=== PATIENT | female | born 1995 | race Caucasian/White ===

== ENCOUNTER 2017-09-17 19:16 | Outpatient (CLI) | payer SELFPAY ==
[2017-09-17 19:54] LABS: APPEARANCE,URINE CLEAR; BILIRUBIN,URINE NEGATIVE (NEGATIVE); COLOR,URINE STRAW; GLUCOSE, URINE NEGATIVE (NEGATIVE); KETONES,URINE NEGATIVE (NEGATIVE); LEUKOCYTE ESTERASE,URINE NEGATIVE (NEGATIVE); NITRITE,URINE NEGATIVE (NEGATIVE); PROTEIN,URINE NEGATIVE (NEGATIVE); URINE SPECIFIC GRAVITY 1.004; UROBILINOGEN,URINE NEGATIVE mg/dL (<2.0)
[2017-09-17] MEDS ORDERED: RINGERS SOLUTION,LACTATED 1,000 ML IV PRN (20:00)
[2017-09-17 20:22] LABS: URINE AMPHETAMINES SCREEN NEGATIVE; URINE BARBITURATES SCREEN NEGATIVE; URINE BENZODIAZEPINES SCREEN NEGATIVE; URINE COCAINE SCREEN NEGATIVE; URINE METHADONE SCREEN NEGATIVE; URINE PHENCYCLIDINE SCREEN NEGATIVE
[2017-09-17 20:30] LABS: URINE MARIJUANA (THC) SCREEN UNCONFIRMED POSITIVE
--- NOTE | 2017-09-17 22:12 | RADIOLOGY REPORT (SQ) ---
EXAM DESCRIPTION: U/S OB 14+ TRNABD 1GES W/O DOP COMPLETED DATE/TIME: 09/17/2017 9:53 pm REASON FOR STUDY: full ob and cervical lenght pre term labor limited COMPARISON: None. TECHNIQUE: Static and Dynamic grayscale imaging performed of gravid uterus using transabdominal appr oach. Additional selected color Doppler and spectral images recorded. All stored on PACS. LIMITATIONS: Limited anatomic survey. FINDINGS: EGA: 24 weeks 3 days based on incomplete biometrics. DONALD: 01/04/2018 EFW: Not calculated. SAM: Adequate amount. PLACENTA: Posterior. PRESENTATION: Cephalic. ANATOMY: HEART RATE: 136 beats per minute. No gross anatomic abnormality. MATERNAL ADNEXA: Maternal ovaries not visualized. CERVICAL LENGTH: 4.2 cm. Closed. OTHER: No other significant finding. IMPRESSION: LIVING INTRAUTERINE . ESTIMATED GESTATIONAL AGE 24 WEEKS 3 DAYS BASED ON INCOMPLETE BIOMETRY ABDOMINAL CIRCUMFEREN CE WAS NOT OBTAINED. IF MORE ACCURATE ASSESSMENT IS INSERT PATIENT REQUIRES REPEAT IMAGING. NO VISUALIZED ANOMALIES HOWEVER RECOMMEND PATIENT UNDERGO DEDICATED ANATOMIC OB ULTRASOUND IF NOT ALR CHULA PERFORMED. Trimester of : Second trimester - 13 weeks 1 day to 27 weeks 6 days. TECHNICAL DOCUMENTATION: JOB ID: [id number] [employer]- All Rights Reserved Reading location - IP/workstation name: [email or web address]
== END 2017-09-17 22:37 | disposition home or self-care (01) ==
LOC: LC 19:16
PROVIDERS: ATTEND Obstetrics & Gynecology
PROC: 4A1HXCZ Monitoring of Products of Conception, Cardiac Rate, External Approach (ICD-10-PCS; principal; 2017-09-17)
DX: O47.02 False labor before 37 completed weeks of gestation, second trimester (principal); O99.322 Drug use complicating pregnancy, second trimester; F12.90 Cannabis use, unspecified, uncomplicated; Z3A.25 25 weeks gestation of pregnancy
CPT/HCPCS: 59025; 81001; 80307; 82731; 76805; G0480 ×2

== ENCOUNTER 2017-10-31 21:29 | Outpatient (CLI) | payer SELFPAY ==
[2017-10-31] MEDS ORDERED: RINGERS SOLUTION,LACTATED 1,000 ML IV PRN (22:05)
[2017-10-31 22:22] LABS: APPEARANCE,URINE SLIGHTLY-CLOUDY; BILIRUBIN,URINE NEGATIVE (NEGATIVE); COLOR,URINE YELLOW; GLUCOSE, URINE NEGATIVE (NEGATIVE); KETONES,URINE NEGATIVE (NEGATIVE); LEUKOCYTE ESTERASE,URINE NEGATIVE (NEGATIVE); NITRITE,URINE NEGATIVE (NEGATIVE); PROTEIN,URINE NEGATIVE (NEGATIVE); URINE SPECIFIC GRAVITY 1.016
[2017-10-31 22:35] LABS: ABSOLUTE BASOPHILS # (AUTO) 0.1 10^3/uL (0.0-0.2); ABSOLUTE EOSINOPHILS # (AUTO) 0.1 10^3/uL (0.0-0.6); ABSOLUTE LYMPHOCYTES (AUTO) 2.3 10^3/uL (0.5-4.7); ABSOLUTE MONOCYTES (AUTO) 0.7 10^3/uL (0.1-1.4); ABSOLUTE NEUT (AUTO) 6.6 10^3/uL (1.7-8.2); BASOPHILS % (AUTO) 0.5 % (0-2); EOSINOPHILS % (AUTO) 0.7 % (0-6); HEMATOCRIT 30.7 % (36.0-47.0); HEMOGLOBIN 10.5 g/dL (12.0-15.5); LYMPHOCYTES % (AUTO) 23.6 % (13-45); MEAN CORPUSCULAR HEMOGLOBIN 29.9 pg (27.0-33.4); MEAN CORPUSCULAR HGB CONC 34.3 g/dL (32.0-36.0); MEAN CORPUSCULAR VOLUME 87 fl (80-97); MONOCYTES % (AUTO) 7.6 % (3-13); PLATELET COUNT 153 10^3/uL (150-450); RED BLOOD COUNT 3.51 10^6/uL (3.72-5.28); RED CELL DISTRIBUTION WIDTH 14.8 % (11.5-14.0); SEGMENTED NEUTROPHILS % (AUTO) 67.6 % (42-78); TOTAL CELLS COUNTED % (AUTO) 100 %; WHITE BLOOD COUNT 9.8 10^3/uL (4.0-10.5)
[2017-10-31 22:36] LABS: URINE AMPHETAMINES SCREEN NEGATIVE; URINE BARBITURATES SCREEN NEGATIVE; URINE BENZODIAZEPINES SCREEN NEGATIVE; URINE COCAINE SCREEN NEGATIVE; URINE METHADONE SCREEN NEGATIVE; URINE PHENCYCLIDINE SCREEN NEGATIVE
[2017-10-31 22:40] LABS: URINE MARIJUANA (THC) SCREEN UNCONFIRMED POSITIVE
--- NOTE | 2017-10-31 23:00 | RADIOLOGY REPORT (SQ) ---
EXAM DESCRIPTION: US LIMITED CLINICAL HISTORY: 22 years Female, cervical length for ctx Comparison: 4.13.18 TECHNIQUE/LIMITATION: Targeted OB sonogram for requested parameters only. FINDINGS: Cardiac activity: 132-bpm. Presentation: Vertex Cervical length: 2.9-cm. Closed appearance. IMPRESSION: Targeted OB sonogram for requested parameters
[2017-10-31 23:48] LABS: RUBELLA INTERPRETATION POSITIVE
[2017-11-01 02:02] LABS: CHLAM PCR NOT DETECTED (NOT DETECT); GON PCR NOT DETECTED (NOT DETECT)
[2017-11-03 06:38] LABS: HEPATITIS C VIRUS AB <0.1 s/co ratio (0.0-0.9)
[2017-11-03 07:12] LABS: HEPATITS B SURFACE ANTIGEN Negative (Negative)
== END 2017-11-01 00:36 | disposition home or self-care (01) ==
LOC: LC 21:29
PROVIDERS: ATTEND Obstetrics & Gynecology
PROC: 4A1HXCZ Monitoring of Products of Conception, Cardiac Rate, External Approach (ICD-10-PCS; principal; 2017-10-31)
DX: O47.03 False labor before 37 completed weeks of gestation, third trimester (principal); Z3A.31 31 weeks gestation of pregnancy
CPT/HCPCS: 59899; 86900; 86901; 36415; 86850; 85025; 86762; 86592; 81001; 87340; 86701; 80307; 87491; 87591; 86803; 86804; 76815; G0480 ×2

== ENCOUNTER 2017-12-05 15:35 | Inpatient (IN) | payer MEDICAID ==
[2017-12-05 16:01] LABS: APPEARANCE,URINE CLEAR; BILIRUBIN,URINE NEGATIVE (NEGATIVE); COLOR,URINE STRAW; GLUCOSE, URINE NEGATIVE (NEGATIVE); KETONES,URINE 20 mg/dL (NEGATIVE); LEUKOCYTE ESTERASE,URINE NEGATIVE (NEGATIVE); NITRITE,URINE NEGATIVE (NEGATIVE); PROTEIN,URINE NEGATIVE (NEGATIVE); URINE SPECIFIC GRAVITY 1.006; UROBILINOGEN,URINE NEGATIVE mg/dL (<2.0)
[2017-12-05 16:08] LABS: ABSOLUTE BASOPHILS # (AUTO) 0.1 10^3/uL (0.0-0.2); ABSOLUTE LYMPHOCYTES (AUTO) 1.8 10^3/uL (0.5-4.7); ABSOLUTE MONOCYTES (AUTO) 0.8 10^3/uL (0.1-1.4); ABSOLUTE NEUT (AUTO) 11.9 10^3/uL (1.7-8.2); BASOPHILS % (AUTO) 0.6 % (0-2); EOSINOPHILS % (AUTO) 0.1 % (0-6); HEMATOCRIT 33.2 % (36.0-47.0); HEMOGLOBIN 11.1 g/dL (12.0-15.5); LYMPHOCYTES % (AUTO) 12.5 % (13-45); MEAN CORPUSCULAR HEMOGLOBIN 28.6 pg (27.0-33.4); MEAN CORPUSCULAR HGB CONC 33.6 g/dL (32.0-36.0); MEAN CORPUSCULAR VOLUME 85 fl (80-97); MONOCYTES % (AUTO) 5.5 % (3-13); PLATELET COUNT 141 10^3/uL (150-450); RED CELL DISTRIBUTION WIDTH 15.4 % (11.5-14.0); SEGMENTED NEUTROPHILS % (AUTO) 81.3 % (42-78); TOTAL CELLS COUNTED % (AUTO) 100 %; WHITE BLOOD COUNT 14.7 10^3/uL (4.0-10.5)
[2017-12-05 16:15] LABS: URINE AMPHETAMINES SCREEN NEGATIVE; URINE BARBITURATES SCREEN NEGATIVE; URINE BENZODIAZEPINES SCREEN NEGATIVE; URINE COCAINE SCREEN NEGATIVE; URINE MARIJUANA (THC) SCREEN NEGATIVE; URINE METHADONE SCREEN NEGATIVE; URINE PHENCYCLIDINE SCREEN NEGATIVE
--- NOTE | 2017-12-05 16:31 | Admission Physical ---
Datetime Report Generated by CPN: 12/05/2017 16:31 CURRENT ADMISSION Chief Complaint: Uterine Contractions Indication for Induction: Not Applicable Admit Impression : Active Labor Admit Plan: Admit to Unit; Initiate Labor Protocol ALLERGIES Medication Allergies: No Medication Allergies: No Known Allergies (11/01/2017) Latex: No Latex Allergies OBSTETRICAL HISTORY EDC: 12/30/2017 00:00 : 2 Para: 1 Term: 0 : 1 SAB: 0 IAB: 0 Ectopic: 0 Livin Cesareans: 0 VBACs: 0 Multiple Births: 0 Gestational Diabetes: No Rh Sensitization: No Incompetent Cervix: No EVI: No Infertility: No ART Treatment: No Uterine Anomaly: No IUGR: No Hx Previous C/S: No Macrosomia: No Hx Loss/Stillborn: No PIH: No Hx : No Placenta Previa/Abruption: Yes Depression/PP Depression: No PTL/PROM: Yes Post Hemorrhage: No Current Procedures: Ultrasound Obstetrical History Comments: [id number], male, with PTL at 30 weeks, 5lbs +, placenta previa resolved prior to delivery g2- SEE RECORDS Alcohol: No Marijuana : Yes Marijuana Frequency: Occasional Years Used: .5 Last Used: 05/07/2017 00:00 Previous Treatment: None Marijuana Comments: stopped early in Cocaine: No Other Illicit Drugs: No Cigarettes: Never Smoker. 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 Surgery: No Heart Disease: No Hosp/Surgery: Yes Autoimmune Disorder: No Anesthetic Complications: No Kidney Disease: No Abnormal Pap Smear: No Neuro/Epilepsy: No Psychiatric Disorders: No Other Medical Diseases: No Hepatitis/Liver Disease: No Significant Family History: No Varicosities/Phlebitis: No Trauma/Violence : No Thyroid Dysfunction: No Medical History Comments: x 1, occasional marijuana use early in but stopped, questionable HSV test was negative but son was positive at 5 weeks, tenea versa color INFECTIOUS HISTORY Gonorrhea: No Genital Herpes: Unknown Chlamydia: No Tuberculosis: No Syphilis: No Hepatitis: No HIV/AIDS Exposure: No Rash or Viral Illness: No HPV: No Infectious History Comments: HSV unknown, tested negative but son contracted HSV around 5 weeks PHYSICAL EXAM General: Normal HEENT: Normal Neurologic: Normal Thyroid: Normal Heart: Normal Lungs: Deferred Breast: Normal Back: Normal Abdomen: Normal Genitourinary Exam: Normal Extremities: Normal DTRs: Normal Pelvic Type: Adequate Vital Signs: Reviewed VAGINAL EXAM Dilatation: 4 Effacement: 80 Station: 0 MEMBRANES Pooling: Negative Membranes: Intact FETUS A EGA: 36.3 Monitoring: External US FHR- Baseline: 120 Variability: Moderate 6-25bpm Decelerations: None FHR Category: Category I Presentation: Vertex Admit Comment: She has had no care. Will treat for GBS. PLANS FOR LABOR AND DELIVERY Labor and Delivery: None Pain Management: Natural Feeding Preference: Breast Benefit of Breast Feed Discussed: Yes INFORMED CONSENT Signature: with User ID: [email or web address]
[2017-12-05] MEDS ORDERED: PENICILLIN G-K 5 MILLION UNIT VIAL ONE ×2 (16:57→21:24)
[2017-12-05 16:58] LABS: RUBELLA INTERPRETATION POSITIVE
[2017-12-05] MEDS ORDERED: PROMETHAZINE HCL INJ 25 MG/1 ML VIAL ONE (17:49)
[2017-12-05] MEDS ORDERED: NALBUPHINE HCL INJ 10 MG/1 ML AMPULE ONE (17:49)
--- NOTE | 2017-12-05 20:18 | RADIOLOGY REPORT (SQ) ---
EXAM DESCRIPTION: U/S OB 14+ TA/1 GEST W/DOPPLER COMPLETED DATE/TIME: 12/05/2017 8:07 pm REASON FOR STUDY: No care, complete U/S at bedside COMPARISON: None. TECHNIQUE: Static and Dynamic grayscale imaging performed of gravid uterus using transabdominal appr oach. Additional selected color Doppler and spectral images recorded. All stored on PACS. LIMITATIONS: None. FINDINGS: EGA: 36 weeks 3 days DONALD: 12/30/2017 EFW: 6 lb 8 oz PERCENTILE: Not calculated SAM: 15.7 cm PLACENTA: Posterior placenta no grade calculated PRESENTATION: Cephalic. ANATOMY: HEART RATE: 118 beats per minute. FOUR CHAMBER HEART: Visualized. THREE VESSEL CORD: Yes. CORD INSERTION: Visualized. KIDNEYS AND BLADDER: Visualized. Appear normal. STOMACH: Visualized. Appears normal. SPINE: Normal as visualized. BRAIN AND LATERAL VENTRICLES: Not visualized OTHER: No other significant finding. MATERNAL ADNEXA: Maternal ovaries not visualized. CERVICAL LENGTH: Not applicable. Greater than 20 weeks. Need transvaginal study if indicated. Close d. OTHER: No other significant finding. IMPRESSION: LIVING INTRAUTERINE . ESTIMATED GESTATIONAL AGE 36 weeks 3 days NO VISUALIZED ANOMALIES. Trimester of : Third trimester - 28 weeks to delivery. TECHNICAL DOCUMENTATION: JOB ID: [id number] [employer]- All Rights Reserved Reading location - IP/workstation name: [email or web address]
[2017-12-05] MEDS ORDERED: OXYTOCIN/NORMAL SALINE 20 UNIT/1,000 ML RTUINJ ONE (20:25)
[2017-12-05] MEDS ORDERED: LIDOCAINE 1% INJ-PF (10 MG/ML) 30 ML SDV ONE (20:25)
[2017-12-05] MEDS ORDERED: MISOPROSTOL 0.2 MG TABLET ONE (20:25)
[2017-12-05] MEDS ORDERED: PENICILLIN G POTASSIUM 2,500,000 UNIT in DEXTROSE 5%-WATER 50 ML IV SCH (22:00)
[2017-12-06] MEDS ORDERED: ZOLPIDEM TARTRATE 5 MG TABLET PO PRN (01:24)
[2017-12-06] MEDS ORDERED: NA PHOS,M-B/NA PHOS,DI-BA (ADULT) 133 ML ENEMA PR PRN (01:24)
[2017-12-06] MEDS ORDERED: DIBUCAINE 1% OINTMENT 28 GM TP PRN (01:24)
[2017-12-06] MEDS ORDERED: GLYCERIN/WITCH HAZEL LEAF 1 EACH MED..PAD TP PRN (01:24)
[2017-12-06] MEDS ORDERED: ACETAMINOPHEN WITH CODEINE #3 TABLET PO PRN (01:24)
[2017-12-06] MEDS ORDERED: MAGNESIUM HYDROXIDE SUSP 30 ML UDCUP PO PRN (01:24)
[2017-12-06] MEDS ORDERED: ACETAMINOPHEN 650 MG SUPP.RECT PR PRN (01:24)
[2017-12-06] MEDS ORDERED: PROMETHAZINE HCL 25 MG TABLET PO PRN (01:24)
[2017-12-06] MEDS ORDERED: MEASLES,MUMPS&RUBELLA VACC/PF 0.5 ML VIAL SUBCUT PRN (01:24)
[2017-12-06] MEDS ORDERED: PROMETHAZINE HCL INJ 25 MG/1 ML VIAL IV PRN (01:24)
[2017-12-06] MEDS ORDERED: OXYTOCIN/NORMAL SALINE 20 UNIT/1,000 ML RTUINJ IV PRN (01:24)
[2017-12-06] MEDS ORDERED: BENZOCAINE/MENTHOL AEROSOL SPRAY 56 ML TOP PRN (01:24)
[2017-12-06] MEDS ORDERED: DIPH/PERTUSS(ACELL)/TETANUS VAC/PF 0.5 ML SYR (>=10YO) IM PRN (01:24)
[2017-12-06] MEDS ORDERED: PROMETHAZINE HCL 25 MG SUPP.RECT PR PRN (01:24)
[2017-12-06] MEDS ORDERED: DIPHENHYDRAMINE HCL 25 MG CAPSULE PO PRN (01:24)
[2017-12-06] MEDS ORDERED: PSEUDOEPHEDRINE HCL 30 MG TABLET PO PRN (01:24)
[2017-12-06] MEDS ORDERED: ACETAMINOPHEN WITH CODEINE #3 TABLET ONE (02:06)
[2017-12-06] MEDS: ACETAMINOPHEN WITH CODEINE #3 TABLET PO PRN ×2 (02:07→10:13)
--- NOTE | 2017-12-06 02:42 | Warning Signs in Babies ---
VOD Warning Signs Datetime Report Generated by [facility]: 12/06/2017 02:41 VOD#608 -Warning Signs in Babies: Needs to be viewed. (09/17/2017 19:33:Traci Rogers RN)
[2017-12-06] MEDS: IBUPROFEN 800 MG TABLET PO SCH ×3 (05:36→21:17)
[2017-12-06] MEDS: FAMOTIDINE 20 MG TABLET PO SCH ×2 (10:12→21:17)
[2017-12-06] MEDS: FERROUS SULFATE 325 MG TABLET PO SCH ×2 (10:12→17:53)
[2017-12-06] MEDS: DOCUSATE SODIUM 100 MG CAPSULE PO SCH ×2 (10:13→17:53)
[2017-12-06] MEDS: SENNOSIDES/DOCUSATE 8.6-50 MG 1 EACH TABLET PO SCH (10:13)
[2017-12-06] MEDS: PRENATAL VITAMIN W DHA CAPSULE PO SCH (10:13)
--- NOTE | 2017-12-06 13:50 | PDOC PROGRESS REPORT ---
Subjective-OB Progress Note for:: 12/06/17 Subjective: 22yo G2 now P2 s/p 12hrs pp. Ambulating and voiding without difficulty. Pain well controlled with motrin. No concerns. Physical Exam (OB) Vital Signs: Temp Pulse Resp BP Pulse Ox 98.3 F 79 20 100/45 L 99 12/06/17 07:40 12/06/17 07:40 12/06/17 07:40 12/06/17 07:40 12/06/17 07:40 Intake & Output 12/05/17 12/06/17 12/07/17 06:59 06:59 06:59 Weight 67 kg - General General Appearance: Appears well In distress: None - PIH/Pre-Eclampsia Clonus: Negative Headache: Absent Epigastric Pain: No Visual Changes: No - Episiotomy/Laceration Site Condition: N/A - Lochia Lochia Amount: Scant < 10 ml Lochia Color: Rubra/Red - Abdomen Description: Soft Hernia Present: No Fundal Description: Firm, Midline Fundal Height: u/u - u/2 - Respiratory Respiratory Status: No respiratory distress - Extremities Upper extremity: Normal inspection Lower extremities: Normal inspection - Neurological Cognition: Normal Orientation: AAOx4 - Psychological Associated symptoms: Normal affect, Normal mood Objective-Diagnostic Laboratory: 12/05/17 16:00 12/05/17 12/05/17 12/05/17 15:39 16:00 16:00 WBC 14.7 H RBC 3.90 Hgb 11.1 L Hct 33.2 L MCV 85 MCH 28.6 MCHC 33.6 RDW 15.4 H Plt Count 141 L Seg Neutrophils % 81.3 H Lymphocytes % 12.5 L Monocytes % 5.5 Eosinophils % 0.1 Basophils % 0.6 Absolute Neutrophils 11.9 H Absolute Lymphocytes 1.8 Absolute Monocytes 0.8 Absolute Eosinophils 0.0 Absolute Basophils 0.1 Urine Color STRAW Urine Appearance CLEAR Urine pH 6.0 Ur Specific Roland 1.006 Urine Protein NEGATIVE Urine Glucose (UA) NEGATIVE Urine Ketones 20 H Urine Blood NEGATIVE Urine Nitrite NEGATIVE Ur Leukocyte Esterase NEGATIVE Urine WBC (Auto) 1 Blood Type A POSITIVE Antibody Screen NEGATIVE Assessment and Plan(PN) - Assessment and Plan (1) No care in current Is this a current diagnosis for this admission?: Yes (2) Vaginal delivery Is this a current diagnosis for this admission?: Yes Plan: Routine pp care. (3) Cannabis use disorder, mild, abuse Is this a current diagnosis for this admission?: Yes Plan: discharge planning consult placed - Time Spent with Patient Time with patient: Less than 15 minutes Medications reviewed and adjusted accordingly: Yes - Disposition Anticipated Discharge: Home Within: within 48 hours
[2017-12-06] MEDS ORDERED: DOCUSATE SODIUM 100 MG CAPSULE ONE (17:31)
[2017-12-06] MEDS ORDERED: FERROUS SULFATE 325 MG TABLET PO ONE (17:32)
[2017-12-07] MEDS: IBUPROFEN 800 MG TABLET PO SCH ×3 (06:33→21:01)
[2017-12-07 06:56] LABS: HEMATOCRIT 32.8 % (36.0-47.0); MEAN CORPUSCULAR HEMOGLOBIN 28.7 pg (27.0-33.4); MEAN CORPUSCULAR HGB CONC 33.7 g/dL (32.0-36.0); MEAN CORPUSCULAR VOLUME 85 fl (80-97); PLATELET COUNT 147 10^3/uL (150-450); RED BLOOD COUNT 3.85 10^6/uL (3.72-5.28); WHITE BLOOD COUNT 9.9 10^3/uL (4.0-10.5)
[2017-12-07] MEDS: SENNOSIDES/DOCUSATE 8.6-50 MG 1 EACH TABLET PO SCH (09:00)
[2017-12-07] MEDS: PRENATAL VITAMIN W DHA CAPSULE PO SCH (09:00)
[2017-12-07] MEDS: FAMOTIDINE 20 MG TABLET PO SCH ×2 (09:00→21:00)
[2017-12-07] MEDS: DOCUSATE SODIUM 100 MG CAPSULE PO SCH ×2 (09:00→18:15)
[2017-12-07] MEDS: FERROUS SULFATE 325 MG TABLET PO SCH ×2 (09:00→18:13)
--- NOTE | 2017-12-07 09:32 | PDOC PROGRESS REPORT ---
Subjective Progress Note for:: 12/07/17 Subjective:: doing well. minimal lochia. no problems Reason For Visit: Physical Exam - Physical Exam Vital Signs: Temp Pulse Resp BP Pulse Ox 98.3 F 61 16 119/66 99 12/06/17 19:31 12/06/17 19:31 12/06/17 19:31 12/06/17 19:31 12/06/17 19:31 Intake & Output 12/06/17 12/07/17 12/08/17 06:59 06:59 06:59 Weight 67 kg General appearance: PRESENT: no acute distress, cooperative GI/Abdominal exam: PRESENT: soft - Obstetrical Exam Fundal Height: u/u - u/2 Result Laboratory Results: 12/07/17 06:29 12/07/17 06:29 WBC 9.9 RBC 3.85 Hgb 11.0 L Hct 32.8 L MCV 85 MCH 28.7 MCHC 33.7 RDW 16.0 H Plt Count 147 L Impressions: Obstetrics Ultrasound 12/05/17 00:00 IMPRESSION: LIVING INTRAUTERINE . ESTIMATED GESTATIONAL AGE 36 weeks 3 days NO VISUALIZED ANOMALIES. Trimester of : Third trimester - 28 weeks to delivery. Assessment & Plan - Diagnosis (1) Limited care Is this a current diagnosis for this admission?: Yes (2) No care in current Is this a current diagnosis for this admission?: Yes (3) Vaginal delivery Is this a current diagnosis for this admission?: Yes (4) Cannabis use disorder, mild, abuse Is this a current diagnosis for this admission?: Yes - Time Time Spent with patient: Less than 15 minutes Anticipated discharge: Home Within: within 24 hours - Plan Summary Plan Summary: normal course. anticipate discharge in the AM
[2017-12-07 10:26] LABS: HEPATITS B SURFACE ANTIGEN Negative (Negative)
[2017-12-08] MEDS: IBUPROFEN 800 MG TABLET PO SCH ×2 (06:24→13:54)
[2017-12-08] MEDS: PRENATAL VITAMIN W DHA CAPSULE PO SCH (10:10)
[2017-12-08] MEDS: FERROUS SULFATE 325 MG TABLET PO SCH (10:10)
[2017-12-08] MEDS: DOCUSATE SODIUM 100 MG CAPSULE PO SCH (10:12)
[2017-12-08] MEDS: SENNOSIDES/DOCUSATE 8.6-50 MG 1 EACH TABLET PO SCH (10:12)
[2017-12-08] MEDS: FAMOTIDINE 20 MG TABLET PO SCH (10:12)
--- NOTE | 2017-12-08 10:56 | PDOC DISCHARGE SUMMARY ---
Final Diagnosis Discharge Date: 12/08/17 - Final Diagnosis (1) No care in current Is this a current diagnosis for this admission?: Yes (2) Vaginal delivery Is this a current diagnosis for this admission?: Yes Discharge Data - Discharge Medication Prescriptions: Ibuprofen [Motrin 800 mg Tablet] 800 mg PO Q8 #60 tablet Home Medications: Vit Calc,Iron,Folic [ Vitamins] 1 tab PO DAILY 09/17/17 Ibuprofen [Motrin 800 mg Tablet] 800 mg PO Q8 #60 tablet 12/08/17 Reason(s) for Admission: Onset of Labor Procedures: NST Intrapartum Procedure(s): Spontaneous Vaginal Delivery - Diagnosis Test Laboratory: Temp Pulse Resp BP Pulse Ox 98.3 F 71 17 110/53 L 100 12/07/17 20:19 12/07/17 20:19 12/07/17 20:19 12/07/17 20:19 12/07/17 20:19 12/05/17 12/05/17 12/07/17 15:39 16:00 06:29 RBC 3.90 3.85 Hgb 11.1 L 11.0 L Hct 33.2 L 32.8 L Urine Opiates Screen NEGATIVE - Discharge information/Instructions Discharge Activity: Balance Activity w/Rest, Pelvic Rest Discharge Diet: Regular Disposition: HOME, SELF-CARE Follow up with: [facility] in: 4, Weeks
[2017-12-08 12:20] VITALS: BP 102/60
--- NOTE | 2017-12-14 08:42 | Delivery Summary ---
Del Sum A-C Datetime Report Generated by CPN: 12/14/2017 08:42 DELIVERY PERSONNEL DELIVERY PERSONNEL: [id number] Delivery Doctor:: Natasha Sorenson MD Labor and Delivery Nurse:: Traci Burgos RN Labor and Delivery Nurse:: Ariela Malik RN Nursery Nurse:: Maegan Tracy RN Transition Program Manager/CYBER OPS PLANNER: ST Christina Transition Program Manager/CYBER OPS PLANNER: Catherine Hardy, ST MATERNAL INFORMATION Delivery Anesthesia: None Medications After Delivery: Pitocin Drip 20 Units/1000ml NSS Estimated Blood Loss (ml): 250 Maternal Complications: Other Other Maternal Complications: labor LABOR SUMMARY EDC: 12/30/2017 00:00 No. Babies in Womb: 1 Attempted: No Labor Anesthesia: None LABOR INFORMATION Reason for Induction: Not Applicable Onset of Labor: 12/06/2017 17:00 Complete Dilatation: 12/06/2017 01:09 Oxytocin: N/A Group B Beta Strep: 1 NO GROUP B STREPTOCOCCUS RECOVERED Group B Beta Strep: unknown Steroids Given: None Reason Steroids Not Administered: Not Applicable MEMBRANES Membranes Rupture Method: Artificial Rupture of Membranes: 12/06/2017 22:22 Length of Rupture (hr): -21.13 Amniotic Fluid Color: Clear Amniotic Fluid Amount: Moderate Amniotic Fluid Odor: Normal STAGES OF LABOR Stage 1 hr: -15 Stage 1 min: -51 Stage 2 hr: 0 Stage 2 min: 5 Stage 3 hr: 0 Stage 3 min: 5 Total Time in Labor hr: -15 Total Time in Labor min: -41 VAGINAL DELIVERY Episiotomy: None Laceration #1: None Laceration Extension #1: N/A Laceration Repair: Not Applicable Sponge Count Correct: Vaginal Sweep Performed Sharps Count Correct: Yes CSECTION DELIVERY Primary Indication: N/A Secondary Indication: N/A CSection Incision: N/A BABY A INFORMATION Delivery Date/Time: 12/06/2017 01:14 Method of Delivery: Vaginal Born in Route : No : N/A Forceps: N/A Vacuum Extraction: N/A Shoulder Dystocia : No PRESENTATION/POSITION BABY A Presentation: Cephalic Cephalic Presentation: Vertex Vertex Position: Right Occipital Anterior Breech Presentation: N/A PLACENTA INFORMATION BABY A Placenta Delivery Time : 12/06/2017 01:19 Placenta Method of Delivery: Spontaneous Placenta Method of Delivery: Spontaneous Placenta Status: Delivered SCORES BABY A Heart Rate 1 min: >100 bpm Resp Effort 1 min: Good Cry Reflex Irritability 1 min: Cough or Sneeze or Pulls Away Muscle Tone 1 min: Active Motion Color 1 min: Blue/Pale Resuscitation Effort 1 min: Tactile Stimulation SCORE 1 MIN: 8 Heart Rate 5 min: >100 bpm Resp Effort 5 min: Good Cry Reflex Irritability 5 min: Cough or Sneeze or Pulls Away Muscle Tone 5 min: Active Motion Color 5 min: Blue/Pale Resuscitation Effort 5 min: Tactile Stimulation SCORE 5 MIN: 8 INFORMATION BABY A Infant Sex: Male IDENTIFICATION BABY A Verification Date/Time: 12/06/2017 01:31 ID Band Number: [id number] Infant RN Verifying Infant: Maegan Rossana, RN C. Gentilin, RN WEIGHT/LENGTH BABY A Infant Birthweight (gm): 2705 Infant Weight (lb): 5 Infant Weight (oz): 15 Length (in): 19.50 Length (cm): 49.53 CORD INFORMATION BABY A No. Cord Vessels: 3 Nuchal Cord : N/A Cord Blood Taken: Yes-For Storage (Mom's Blood type +) Suction: None ASSESSMENT BABY A Infant Complications: None Physical Findings at Delivery: Within Normal Limits Infant Respirations: Appears Normal Skin to Skin: No Skin to Skin: Yes Skin to Skin Time (min): 5 Transferred To: Remains with Mother BABY B INFORMATION : N/A SIGNATURES Signature: with User ID: [email or web address]
== END 2017-12-08 17:28 | disposition home or self-care (01) | DRG 775 ==
LOC: LC 15:35 → LR 16:28 → 2S 12-06 02:57
PROVIDERS: ADMIT Obstetrics & Gynecology; ATTEND Obstetrics & Gynecology
PROC: 10E0XZZ Delivery of Products of Conception, External Approach (ICD-10-PCS; principal; 2017-12-05)
PROC: 4A1HXCZ Monitoring of Products of Conception, Cardiac Rate, External Approach (ICD-10-PCS; 2017-12-05)
PROC: 10907ZC Drainage of Amniotic Fluid, Therapeutic from Products of Conception, Via Natural or Artificial Opening (ICD-10-PCS; 2017-12-06)
DX: O60.14X0 Preterm labor third trimester with preterm delivery third trimester, not applicable or unspecified (principal); O99.324 Drug use complicating childbirth; F12.10 Cannabis abuse, uncomplicated; Z3A.36 36 weeks gestation of pregnancy; Z37.0 Single live birth
CPT/HCPCS: 36415; 76805; 80307; 81001; 85025; 85027; 86592; 86762; 86850; 86900; 86901; 87081; 87340; 93976; J2300; J2540; J2550; J2590; J3490